=== PATIENT | female | born 1965 | race Caucasian/White ===

== ENCOUNTER 2025-06-24 08:17 | Inpatient (IN) ==
[2025-06-24] MEDS: NS 1,000 ML IV 1,000 ML ONE (08:46)
[2025-06-24] MEDS: ZOFRAN INJ 4 MG VIAL ONE (09:01)
[2025-06-24] MEDS: ZOFRAN INJ 4 MG VIAL IVP PRN (09:03)
[2025-06-24] MEDS: DIPRIVAN VIAL 20 ML ONE (09:15)
[2025-06-24] MEDS: NS 1,000 ML IV 250 ML IV PRN (09:35)
[2025-06-24] MEDS ORDERED: XYLOCAINE 2 % (PLAIN) PRN (09:40)
[2025-06-24] MEDS: DIPRIVAN VIAL 200 ML IVP PRN (09:41)
[2025-06-24] MEDS ORDERED: ZOFRAN INJ 4 MG VIAL IVP PRN (10:40)
[2025-06-24] MEDS: PROTONIX INJ 40 MG VIAL IVP SCH (11:13)
[2025-06-24] MEDS: NS 250 ML IV 25 ML IV PRN (11:13)
[2025-06-24] MEDS: D5 1/2 NS 1,000 ML 1,000 ML IV SCH (11:13)
[2025-06-24] MEDS: ZOSYN VIAL 3.375 GRAMS 3.375 G in NS 100 ML IV 100 ML IV SCH (11:13)
[2025-06-24 11:24] LABS: MEAN PLATELET VOLUME 7.2 fL (7.4-11.0); RED CELL DISTRIBUTION WIDTH 15.0 % (11.6-16.5)
[2025-06-24 11:33] LABS: COR CA(FOR HYPOALB) 10.0 mg/dL (8.5-10.1); CREATININE 0.83 mg/dL (0.55-1.02); eGFR NON BLACK RACES > 60 (>60)
[2025-06-24] MEDS ORDERED: STERILE WATER IRRIGATION IR ONE (11:33)
[2025-06-24 11:42] LABS: BAND NEUTROPHILS % 6 % (0-10); PLATELET MORPHOLOGY COMMENT NORMAL (NORMAL)
[2025-06-24] MEDS: OMNIPAQUE 350 mg/mL 100 mL BTL 100 ML ONE (12:43)
[2025-06-24] MEDS: READI-CAT 2 ONE (12:43)
[2025-06-24 12:56] VITALS: BMI 28.5
[2025-06-24] MEDS: FLAGYL IV PREMIX 500 MG BAG 500 MG/100 ML BAG IV SCH (14:07)
--- NOTE | 2025-06-24 15:06 | DR.PROGNOT ---
HOSPITAL PROGRESS NOTE Progress Note for Day of: Progress Note Date: 06/24/25 Chief Complaint Chief Complaint: Patient is a 60-year-old female who was admitted after attempted colonoscopy with the findings of acute proctitis and possible diverticulitis as well as lower rectal lesion,, Patient is having frequent mucus discharge from rectum for several months since [place], on and off fever and nausea with food intolerance. She was treated for diverticulitis with temporary improvement then she started to have large amount of mucus discharge, fever, feeling weak and tired. Colonoscopy more than a year ago showed extensive diverticulosis and possible diverticulitis at that time there was no anal or rectal lesion and no significant proctitis. Patient has history of hypothyroidism, breast reduction. We obtain stool from the lumen for C. difficile colitis and stool cultures. WBC with 15,000, potassium 3, hemoglobin 11.6, liver function tests are normal, albumin 2.7 Patient will be started on IV antibiotics and IV steroids till the cultures and pathology report are back. She is scheduled for abdominal pelvic CT scan with contrast.. Past Medical Family Social History Past Med/Fam/Surg Hx: No changes since H&P and Changes noted (describe) Allergies: Allergies No Known Allergies Allergy (Verified 04/09/25 09:58) Review Of Systems Changes in ROS: Recent fever on and off , severe nausea, excessive mucus discharge. No ble Vital Signs Vital Signs: Vital Signs Temperature 98.9 F Temperature 98.8 F Temperature 98.0 F Pulse Rate [Left Radial] 72 Pulse Rate [Left Radial] 71 Pulse Rate [Left Radial] 69 Pulse Rate [Left Radial] 70 Pulse Rate [Left Radial] 70 Pulse Rate 69 Pulse Rate 78 Pulse Rate 78 Respiratory Rate 20 Respiratory Rate 20 Respiratory Rate 20 Respiratory Rate 20 Respiratory Rate 20 Respiratory Rate 18 Respiratory Rate 20 Blood Pressure [Left Arm] 130/62 Blood Pressure [Left Arm] 132/60 Blood Pressure [Left Arm] 130/60 Blood Pressure [Left Arm] 129/59 Blood Pressure [Left Arm] 125/60 Blood Pressure 117/79 Blood Pressure 137/69 O2 Sat by Pulse Oximetry 100 O2 Sat by Pulse Oximetry 100 O2 Sat by Pulse Oximetry 100 O2 Sat by Pulse Oximetry 100 O2 Sat by Pulse Oximetry 100 O2 Sat by Pulse Oximetry 95 O2 Sat by Pulse Oximetry 100 Physical Exam Eyes: Normal Ear: Normal Nose: Normal Throat: Normal Respiratory: Normal Cardiovascular: Normal GI:Auscultation: Normal GI:Palpation: Normal GI: Tenderness: Diffuse and Moderate Mood Description: Calm Speech Pattern: Clear and Appropriate Laboratory and Diagnostics 06/24/25 10:58 06/24/25 10:58 Labs: 06/24/25 09:45 Stool - Final Laboratory WBC 15.0 X10^3/uL (3.6-10.0) H 06/24/25 10:58 RBC 4.57 X10^6/uL (3.5-5.4) 06/24/25 10:58 Hgb 11.6 g/dL (12.0-16.0) L 06/24/25 10:58 Hct 36.5 % (36.0-47.0) 06/24/25 10:58 MCV 79.7 fL (80.0-100.0) L 06/24/25 10:58 MCH 25.5 pg (27.0-34.0) L 06/24/25 10:58 MCHC 31.9 g/dL (33.0-35.0) L 06/24/25 10:58 RDW 15.0 % (11.6-16.5) 06/24/25 10:58 Plt Count 540 X10^3/uL (150.0-450.0) H 06/24/25 10:58 Plt Count Comment Increased (ADEQUATE) A 06/24/25 10:58 MPV 7.2 fL (7.4-11.0) L 06/24/25 10:58 Neut % (Auto) 80.9 % (42.0-75.0) H 06/24/25 10:58 Lymph % (Auto) 11.3 % (21.0-51.0) L 06/24/25 10:58 [place] % (Auto) 6.7 % (0.0-13.0) 06/24/25 10:58 Eos % (Auto) 0.3 % (0.9-2.9) L 06/24/25 10:58 Baso % (Auto) 0.8 % (0.2-1.0) 06/24/25 10:58 Neut # (Auto) 12.1 x10^3/uL (2.2-4.8) H 06/24/25 10:58 Lymph # (Auto) 1.7 X10^3/uL (1.3-2.9) 06/24/25 10:58 [place] # (Auto) 1.0 x10^3/uL (0.3-0.8) H 06/24/25 10:58 Eos # (Auto) 0.0 x10^3/uL (0.0-0.2) 06/24/25 10:58 Baso # (Auto) 0.1 X10^3/uL (0.0-0.1) 06/24/25 10:58 Absolute Nucleated RBC 0.1 /100WBC 06/24/25 10:58 Total Counted 100 06/24/25 10:58 Neutrophils % (Manual) 81 % (39-76) H 06/24/25 10:58 Band Neutrophils % 6 % (0-10) 06/24/25 10:58 Lymphocytes % (Manual) 7 % (13-43) L 06/24/25 10:58 Monocytes % (Manual) 6 % (4-9) 06/24/25 10:58 Plt Morphology Comment Normal (NORMAL) 06/24/25 10:58 RBC Morphology Abnormal (NORMAL) A 06/24/25 10:58 Hypochromasia Slight A 06/24/25 10:58 Microcytosis Slight A 06/24/25 10:58 Sodium 141 mmol/L (136-145) 06/24/25 10:58 Corrected Sodium TNP 06/24/25 10:58 Potassium 3.0 mmol/L (3.5-5.1) L 06/24/25 10:58 Chloride 103 mmol/L (98-107) 06/24/25 10:58 Carbon Dioxide 28.6 mmol/L (21-32) 06/24/25 10:58 BUN 6 mg/dL (7-18) L 06/24/25 10:58 Creatinine 0.83 mg/dL (0.55-1.02) 06/24/25 10:58 Est GFR (MDRD) Af Amer > 60 (>60) 06/24/25 10:58 Est GFR (MDRD) Non-Af > 60 (>60) 06/24/25 10:58 Glucose 83 mg/dL (65-99) 06/24/25 10:58 POC Glucose (mg/dL) 73 mg/dL (65-99) 06/24/25 08:36 Calcium 9.0 mg/dL (8.5-10.1) 06/24/25 10:58 Corrected Calcium 10.0 mg/dL (8.5-10.1) 06/24/25 10:58 Total Bilirubin 0.40 mg/dL (0.2-1.0) 06/24/25 10:58 AST 19 Units/L (15-37) 06/24/25 10:58 ALT 15 Units/L (12-78) 06/24/25 10:58 Alkaline Phosphatase 63 Units/L (46-116) 06/24/25 10:58 Total Protein 7.7 g/dL (6.4-8.2) 06/24/25 10:58 Albumin 2.7 g/dL (3.4-5.0) L 06/24/25 10:58 Globulin 5.0 g/dL (2.5-4.5) H 06/24/25 10:58 Albumin/Globulin Ratio 0.5 Ratio (1.1-2.1) L 06/24/25 10:58 Stl C. diff Tox B Gene Negative (NEGATIVE) 06/24/25 09:45 Stl C. diff [id number] Presumptive negative (NEGATIVE) 06/24/25 09:45 Assessment and Plan 1: Status post limited colonoscopy with biopsies collection of stool for C. diff. and cultures, diffuse proctocolitis rule out inflammatory bowel disease or diverticulitis. Constant mucus discharge, nausea and food intolerance, hypokalemia On IV antibiotics and Solu-Medrol. Awaiting culture reports and CAT scan of abdomen and pelvis with contrast.
--- NOTE | 2025-06-24 17:04 | CT ---
EXAM: CT ABDOMEN AND PELVIS WITH CONTRAST HISTORY: diverticulitis, proctitis, anal lesion; COMPARISON: None. TECHNIQUE: Axial CT images were obtained through the abdomen and pelvis after the intravenous administration of contrast. Coronal reformatted images were included. Informed written consent was obtained prior to contrast administration. All CT scans at this facility use dose modulation, iterative reconstruction, and/or weight based dosing when appropriate to reduce radiation dose to as low as reasonably achievable. FINDINGS: LOWER THORAX: Bilateral breast implants noted. Heart size is normal. Lung bases are clear. ABDOMEN: LIVER: Within normal limits. GALLBLADDER: Surgically absent. SPLEEN: Within normal limits. PANCREAS: Mild pancreatic duct dilation noted within the region of the pancreatic head. No pancreatic mass or evidence of pancreatic inflammation. KIDNEYS: Left-sided nephrolithiasis noted with dominant lower pole left renal stone measuring up to 13 mm in size. Right renal cyst measures 16 mm. ADRENAL GLANDS: Within normal limits. GI TRACT: There is segmental colonic wall thickening involving the descending colon and proximal sigmoid colon, suggesting colitis. No evidence of bowel obstruction. Normal appendix in the right lower quadrant. LYMPH NODES: No abnormally enlarged nodes. VESSELS: Within normal limits. PERITONEUM / RETROPERITONEUM: No free intraperitoneal fluid or gas. Anterior abdominal wall postoperative changes are noted. PELVIS: BLADDER: Within normal limits. GENITALS: Within normal limits. BONES: Degenerative changes are noted within the lumbar spine and pelvis. IMPRESSION: Segmental colonic wall thickening involving the descending colon and proximal sigmoid colon suggests colitis. Mild pancreatic duct dilation noted without evidence of pancreatic mass or inflammation. Correlation with liver function tests and pancreatic enzyme levels recommended. Postoperative changes of cholecystectomy. THIS IS AN ELECTRONICALLY VERIFIED FINAL REPORT 06/24/2025 5:00 PM - Electronically signed by Izaiah Bearden MD
[2025-06-25 05:43] LABS: MEAN PLATELET VOLUME 7.2 fL (7.4-11.0); RED CELL DISTRIBUTION WIDTH 14.8 % (11.6-16.5)
[2025-06-25 06:04] LABS: COR CA(FOR HYPOALB) 10.0 mg/dL (8.5-10.1); COR NA(FOR HYPERGLY) 143 mmol/L (136-145); CREATININE 0.77 mg/dL (0.55-1.02); eGFR NON BLACK RACES > 60 (>60)
[2025-06-25 06:21] LABS: PLATELET MORPHOLOGY COMMENT NORMAL (NORMAL)
[2025-06-25] MEDS ORDERED: CONSULT PHARMACY - POTASSIUM & MAGNESIUM XX SCH (07:00)
[2025-06-25] MEDS: MAG-OX TAB PO SCH (08:59)
[2025-06-25] MEDS: K-DUR TAB 20 MEQ PO SCH (09:00)
--- NOTE | 2025-06-25 09:06 | DR.PROGNOT ---
HOSPITAL PROGRESS NOTE Progress Note for Day of: Progress Note Date: 06/25/25 Chief Complaint Chief Complaint: Patient is a 60-year-old female who was admitted after attempted colonoscopy with the findings of acute proctitis and possible diverticulitis as well as lower rectal lesion,, Patient is having frequent mucus discharge from rectum for several months since her [place] visit, on and off fever and nausea with food intolerance. She was treated for diverticulitis with temporary improvement then she started to have large amount of mucus discharge, fever, feeling weak and tired. Colonoscopy more than a year ago showed extensive diverticulosis and possible diverticulitis at that time there was no anal or rectal lesion and no significant proctitis. Patient has history of hypothyroidism, breast reduction. We obtain stool from the lumen for C. difficile colitis and stool cultures. WBC with 15,000, potassium 3, hemoglobin 11.6, liver function tests are normal, albumin 2.7 Patient will be started on IV antibiotics and IV steroids till the cultures and pathology report are back. She is scheduled for abdominal pelvic CT scan with contrast.. Today patient is feeling somewhat better, no nausea or vomiting, she still having mucus discharge and moderate amount, no rectal bleeding. No abdominal pain. White count is down to 10.2 with shift to the left and 91% neutrophils, hemoglobin 10.6, potassium 3.1, glucose 195, liver function tests are normal, C. difficile and Bacteria are negative, lactate is within normal limits. Abdominal and pelvic CT scan showed colitis involving the proximal sigmoid and descending colon. Patient is afebrile today and stable vital signs. Past Medical Family Social History Past Med/Fam/Surg Hx: No changes since H&P and Changes noted (describe) Allergies: Allergies No Known Allergies Allergy (Verified 04/09/25 09:58) Review Of Systems Changes in ROS: Recent fever on and off , severe nausea, excessive mucus discharge. No ble Vital Signs Vital Signs: Vital Signs Temperature 97.5 F Pulse Rate [Left Radial] 52 Respiratory Rate 19 Blood Pressure [Left Arm] 118/59 O2 Sat by Pulse Oximetry 96 Physical Exam Oriented: Normal Eyes: Normal Ear: Normal Nose: Normal Throat: Normal Respiratory: Normal Cardiovascular: Normal GI:Auscultation: Normal GI:Palpation: Normal GI: Tenderness: Diffuse and Moderate Mood Description: Calm Speech Pattern: Clear and Appropriate Laboratory and Diagnostics 06/25/25 05:09 06/25/25 05:09 Labs: 06/24/25 09:45 Stool - Final Laboratory WBC 10.2 X10^3/uL (3.6-10.0) H 06/25/25 05:09 RBC 4.06 X10^6/uL (3.5-5.4) 06/25/25 05:09 Hgb 10.6 g/dL (12.0-16.0) L 06/25/25 05:09 Hct 32.0 % (36.0-47.0) L 06/25/25 05:09 MCV 78.8 fL (80.0-100.0) L 06/25/25 05:09 MCH 26.1 pg (27.0-34.0) L 06/25/25 05:09 MCHC 33.1 g/dL (33.0-35.0) 06/25/25 05:09 RDW 14.8 % (11.6-16.5) 06/25/25 05:09 Plt Count 431 X10^3/uL (150.0-450.0) 06/25/25 05:09 Plt Count Comment Adequate (ADEQUATE) 06/25/25 05:09 MPV 7.2 fL (7.4-11.0) L 06/25/25 05:09 Neut % (Auto) 91.1 % (42.0-75.0) H 06/25/25 05:09 Lymph % (Auto) 7.4 % (21.0-51.0) L 06/25/25 05:09 [place] % (Auto) 0.8 % (0.0-13.0) 06/25/25 05:09 Eos % (Auto) 0.0 % (0.9-2.9) L 06/25/25 05:09 Baso % (Auto) 0.7 % (0.2-1.0) 06/25/25 05:09 Neut # (Auto) 9.3 x10^3/uL (2.2-4.8) H 06/25/25 05:09 Lymph # (Auto) 0.8 X10^3/uL (1.3-2.9) L 06/25/25 05:09 [place] # (Auto) 0.1 x10^3/uL (0.3-0.8) L 06/25/25 05:09 Eos # (Auto) 0.0 x10^3/uL (0.0-0.2) 06/25/25 05:09 Baso # (Auto) 0.1 X10^3/uL (0.0-0.1) 06/25/25 05:09 Absolute Nucleated RBC 0.1 /100WBC 06/25/25 05:09 Total Counted 100 06/25/25 05:09 Neutrophils % (Manual) 91 % (39-76) H 06/25/25 05:09 Band Neutrophils % 6 % (0-10) 06/24/25 10:58 Lymphocytes % (Manual) 7 % (13-43) L 06/25/25 05:09 Monocytes % (Manual) 2 % (4-9) L 06/25/25 05:09 Plt Morphology Comment Normal (NORMAL) 06/25/25 05:09 RBC Morphology Abnormal (NORMAL) A 06/25/25 05:09 Hypochromasia Slight A 06/25/25 05:09 Microcytosis Slight A 06/25/25 05:09 Sodium 141 mmol/L (136-145) 06/25/25 05:09 Corrected Sodium 143 mmol/L (136-145) 06/25/25 05:09 Potassium 3.1 mmol/L (3.5-5.1) L 06/25/25 05:09 Chloride 106 mmol/L (98-107) 06/25/25 05:09 Carbon Dioxide 29.6 mmol/L (21-32) 06/25/25 05:09 BUN 6 mg/dL (7-18) L 06/25/25 05:09 Creatinine 0.77 mg/dL (0.55-1.02) 06/25/25 05:09 Est GFR (MDRD) Af Amer > 60 (>60) 06/25/25 05:09 Est GFR (MDRD) Non-Af > 60 (>60) 06/25/25 05:09 Glucose 195 mg/dL (65-99) H 06/25/25 05:09 POC Glucose (mg/dL) 73 mg/dL (65-99) 06/24/25 08:36 Lactic Acid 0.9 mmol/L (0.4-2.0) 06/24/25 14:29 Calcium 8.5 mg/dL (8.5-10.1) 06/25/25 05:09 Corrected Calcium 10.0 mg/dL (8.5-10.1) 06/25/25 05:09 Magnesium 1.9 mg/dL (2.0-2.9) L 06/25/25 05:09 Total Bilirubin 0.20 mg/dL (0.2-1.0) 06/25/25 05:09 AST 13 Units/L (15-37) L 06/25/25 05:09 ALT 9 Units/L (12-78) L 06/25/25 05:09 Alkaline Phosphatase 51 Units/L (46-116) 06/25/25 05:09 Total Protein 6.2 g/dL (6.4-8.2) L 06/25/25 05:09 Albumin 2.1 g/dL (3.4-5.0) L 06/25/25 05:09 Globulin 4.1 g/dL (2.5-4.5) 06/25/25 05:09 Albumin/Globulin Ratio 0.5 Ratio (1.1-2.1) L 06/25/25 05:09 Stl C. diff Tox B Gene Negative (NEGATIVE) 06/24/25 09:45 Stl C. diff [id number] Presumptive negative (NEGATIVE) 06/24/25 09:45 Assessment and Plan 1: Status post limited colonoscopy with biopsies collection of stool for C. diff. and cultures, diffuse proctocolitis rule out inflammatory bowel disease or diverticulitis. Constant mucus discharge, nausea and food intolerance, hypokalemia On IV antibiotics and Solu-Medrol. On clear liquid diet.
[2025-06-25] MEDS: D5 1/2 NS + KCL 20 MEQ/L 1,000 ML IV SCH (12:15)
[2025-06-26 05:47] LABS: MEAN PLATELET VOLUME 7.1 fL (7.4-11.0); RED CELL DISTRIBUTION WIDTH 14.7 % (11.6-16.5)
[2025-06-26 06:03] LABS: COR CA(FOR HYPOALB) 9.8 mg/dL (8.5-10.1); COR NA(FOR HYPERGLY) 146 mmol/L (136-145); CREATININE 0.95 mg/dL (0.55-1.02); PLATELET MORPHOLOGY COMMENT NORMAL (NORMAL); eGFR NON BLACK RACES > 60 (>60)
[2025-06-26] MEDS ORDERED: CONSULT PHARMACY - POTASSIUM & MAGNESIUM XX SCH ×2 (07:00)
[2025-06-26 07:50] VITALS: TEMP 97.7; O2SAT 99
[2025-06-26] MEDS: K-DUR TAB 20 MEQ PO ONE (08:24)
[2025-06-26 11:57] VITALS: BP 130/69; PULSE 60; RESP 18
== END 2025-06-26 13:30 | disposition home or self-care (01) | DRG 394 ==
LOC: SURG1 08:17 → MED/SURG 10:17
PROVIDERS: ADMIT Surgery; ATTEND Surgery
DX: R19.5 Other fecal abnormalities; K52.89 Other specified noninfective gastroenteritis and colitis; B96.5 Pseudomonas (aeruginosa) (mallei) (pseudomallei) as the cause of diseases classified elsewhere; E03.8 Other specified hypothyroidism; K62.89 Other specified diseases of anus and rectum; R19.7 Diarrhea, unspecified; K57.32 Diverticulitis of large intestine without perforation or abscess without bleeding; E87.6 Hypokalemia; D72.828 Other elevated white blood cell count

== ENCOUNTER 2025-07-15 22:21 | Observation (INO) ==
--- NOTE | 2025-07-15 23:54 | DR.NAUSEAF ---
HPI Time Seen Time Seen by Provider: 07/15/25 23:53 Primary Care Physician Primary Care Physician: MIGUEL Cuevas Complaints Chief Complaint:: Patient ambulatory in er with complaints of fever, N/V and diarrhea that started today. Pt states she had a high fever earlier today and took 1g tylenol. Self Treatment fo Chief Complaint: Pt states shes been followed by Dr. Borja for diverticulosis and colitis. Pt has been taking Prednisone 10mg BID and Protonix 40mg daily. COVID-19 Coronavirus risk:travel/contact w/high risk person: No Has patient experienced Coronavirus symptoms: No Coronavirus symptoms experienced: Fever Source History Provided: Patient Mode of Arrival Mode of Arrival: Ambulatory Timing Onset of Chief Complaint: 07/15/25 PMH PMH Past Medical History: Yes Past Medical History: Hypothyroidism and Kidney Stones Past Medical History Comment: Diverticulosis, Colitis Past Surgical History: Yes Surgical History: Cholecystectomy, Tonsillectomy, Lithotripsy and Other Family History History of Family Medical Conditions: Yes Family Medical History: Diabetes Mellitus and Hypertension Social History Does patient currently use any type of tobacco product: No Have you used tobacco products in the last 12 months: No Type of Tobacco Use: None Does any household member use tobacco: No Alcohol Use: None Do you use any recreational Drugs:: No Lives With: Spouse Lives Where: Home Travel Risk Coronavirus risk:travel/contact w/high risk person: No Has patient experienced Coronavirus symptoms: No Coronavirus symptoms experienced: Fever Infectious screening Have you traveled outside the country in the last 6 months?: No Isolation: Standard PE Vital Signs Vitals: Vital Signs Temperature 98.4 F Pulse Rate 58 Pulse Rate 58 Pulse Rate 59 Pulse Rate 59 Pulse Rate 63 Pulse Rate 66 Pulse Rate 92 Respiratory Rate 18 Blood Pressure 106/57 Blood Pressure 96/51 Blood Pressure 97/55 Blood Pressure 85/46 Blood Pressure 100/56 Blood Pressure 92/53 O2 Sat by Pulse Oximetry 98 O2 Sat by Pulse Oximetry 94 O2 Sat by Pulse Oximetry 95 O2 Sat by Pulse Oximetry 96 O2 Sat by Pulse Oximetry 98 O2 Sat by Pulse Oximetry 97 O2 Sat by Pulse Oximetry 95 COURSE Treatment Treatment: Patient with colitis and fever. Discussed results of workup with patient. Patient agreeable to admission for some IV antibiotic and rehydration to help with acute kidney injury. Consultation Called: 02:50 Consultation Comments: Discussed case with Dr. Castellon and she is agreeable to admission. [facility] Labs Reviewed Laboratory Results Reviewed?: Yes 07/15/25 23:55 07/15/25 23:55 Laboratory: WBC 12.4 X10^3/uL (3.6-10.0) H 07/15/25 23:55 RBC 4.70 X10^6/uL (3.5-5.4) 07/15/25 23:55 Hgb 12.4 g/dL (12.0-16.0) 07/15/25 23:55 Hct 37.6 % (36.0-47.0) 07/15/25 23:55 MCV 79.9 fL (80.0-100.0) L 07/15/25 23:55 MCH 26.4 pg (27.0-34.0) L 07/15/25 23:55 MCHC 33.1 g/dL (33.0-35.0) 07/15/25 23:55 RDW 17.7 % (11.6-16.5) H 07/15/25 23:55 Plt Count 437 X10^3/uL (150.0-450.0) 07/15/25 23:55 MPV 7.3 fL (7.4-11.0) L 07/15/25 23:55 Neut % (Auto) 79.0 % (42.0-75.0) H 07/15/25 23:55 Lymph % (Auto) 12.0 % (21.0-51.0) L 07/15/25 23:55 [place] % (Auto) 8.2 % (0.0-13.0) 07/15/25 23:55 Eos % (Auto) 0.1 % (0.9-2.9) L 07/15/25 23:55 Baso % (Auto) 0.7 % (0.2-1.0) 07/15/25 23:55 Neut # (Auto) 9.8 x10^3/uL (2.2-4.8) H 07/15/25 23:55 Lymph # (Auto) 1.5 X10^3/uL (1.3-2.9) 07/15/25 23:55 [place] # (Auto) 1.0 x10^3/uL (0.3-0.8) H 07/15/25 23:55 Eos # (Auto) 0.0 x10^3/uL (0.0-0.2) 07/15/25 23:55 Baso # (Auto) 0.1 X10^3/uL (0.0-0.1) 07/15/25 23:55 Absolute Nucleated RBC 0.2 /100WBC 07/15/25 23:55 Sodium 133 mmol/L (136-145) L 07/15/25 23:55 Corrected Sodium 135 mmol/L (136-145) L 07/15/25 23:55 Potassium 3.9 mmol/L (3.5-5.1) 07/15/25 23:55 Chloride 98 mmol/L (98-107) 07/15/25 23:55 Carbon Dioxide 25.7 mmol/L (21-32) 07/15/25 23:55 BUN 16 mg/dL (7-18) 07/15/25 23:55 Creatinine 1.59 mg/dL (0.55-1.02) H 07/15/25 23:55 Est GFR (MDRD) Af Amer 43 (>60) L 07/15/25 23:55 Est GFR (MDRD) Non-Af 35 (>60) L 07/15/25 23:55 Glucose 164 mg/dL (65-99) H 07/15/25 23:55 Lactic Acid 0.6 mmol/L (0.4-2.0) 07/16/25 00:28 Calcium 8.5 mg/dL (8.5-10.1) 07/15/25 23:55 Corrected Calcium 9.5 mg/dL (8.5-10.1) 07/15/25 23:55 Total Bilirubin 0.80 mg/dL (0.2-1.0) 07/15/25 23:55 AST 15 Units/L (15-37) 07/15/25 23:55 ALT 15 Units/L (12-78) 07/15/25 23:55 Alkaline Phosphatase 67 Units/L (46-116) 07/15/25 23:55 Total Protein 6.8 g/dL (6.4-8.2) 07/15/25 23:55 Albumin 2.7 g/dL (3.4-5.0) L 07/15/25 23:55 Globulin 4.1 g/dL (2.5-4.5) 07/15/25 23:55 Albumin/Globulin Ratio 0.7 Ratio (1.1-2.1) L 07/15/25 23:55 Amylase 37 Units/L (25-115) 07/15/25 23:55 Lipase 22 Units/L (16-77) 07/15/25 23:55 SARS-CoV-2 (PCR) Negative (NEGATIVE) 07/15/25 23:38 Influenza Type A (PCR) Negative (NEGATIVE) 07/15/25 23:38 Influenza Type B (PCR) Negative (NEGATIVE) 07/15/25 23:38 RSV (PCR) Negative (NEGATIVE) 07/15/25 23:38 Other Results Comments: Name: CHRIS PRATHER : 1965 Sex: F Location: ER Order Number(s): [id number] Procedure(s):CT ABDOMEN/PELVIS W/O CON Ordering Physician: Alin Rocha Primary Care: Angelika Sanchez Service Date: 07/16/25 Service Time: 45 EXAM: CT ABDOMEN AND PELVIS WITHOUT CONTRAST HISTORY: Patient ambulatory in er with complaints of fever, N/V and diarrhea that started today. Pt states she had a high fever earlier today and took 1g tylenol. ; COMPARISON: 06/24/2025 TECHNIQUE: Axial images were obtained of the abdomen and pelvis without IV contrast. Sagittal and coronal reformatted images were provided. All images were reviewed in a variety of windows and levels. RADIATION REDUCTION TECHNIQUE: Automated exposure control, adjustment of the mA or kV according to patient size, or iterative reconstruction techniques were used. FINDINGS: Please note that lack of IV contrast does limit evaluation of the soft tissues and vascular detail. The visualized lower lung zones are clear. The heart size is within normal limits. There is no evidence of a pericardial effusion. The liver, spleen, pancreas, adrenal glands, are grossly unremarkable. Post cholecystectomy changes. The kidneys are normal in size. Left nephrolithiasis, nonobstructing. The stomach, small bowel, and colon are grossly unremarkable. Multiple diverticuli arising throughout the colon. There is colonic wall thickening involving the distal descending and sigmoid colon consistent with nonspecific colitis. No abscess or free air identified. There are no inflammatory changes in the right lower quadrant to suggest secondary signs of acute appendicitis. Normal appendix right lower quadrant. There is no evidence of retroperitoneal or mesenteric lymphadenopathy. Uterus is present. Small infraumbilical fat containing ventral hernia. The visualized bones demonstrate degenerative changes. There are no concerning lytic or blastic lesions identified. IMPRESSION: Colonic wall thickening involving the distal descending and sigmoid colon consistent with nonspecific colitis. Colonic diverticulosis. Left nephrolithiasis, nonobstructing. THIS IS AN ELECTRONICALLY VERIFIED FINAL REPORT 07/16/2025 1:15 AM - Electronically signed by Jeffrey Floyd MD Opioid Opioid Risk Tool Age (Asher box if 16-45): No History of Preadolescent Sexual Abuse: No Total: 0 Total Score Risk Category: Low Risk Copyright: Mello THOMPSON predicting aberrant behaviors Discharge Plan Diagnosis Discharge Problem: SALONI (acute kidney injury), Colitis Discharge Plan Patient Disposition: ADMITTED INPATIENT Condition: Stable Prescriptions: No Action ondansetron 4 mg tablet,disintegrating 4 mg PO Q6H PRN (Reason: nausea and vomiting) Qty: 60 1RF pantoprazole 40 mg tablet,delayed release (DR/EC) 40 mg PO QDAY Qty: 90 0RF levothyroxine 75 mcg tablet 75 mcg PO QDAY Ozempic 2 mg/dose (8 mg/3 mL) pen injector 2 mg subcut QWEEK Patient Comments: Pt states she hasn't taken med [id number] prednisone 10 mg tablet 10 mg PO BID Qty: 60 0RF Health Concerns: Post Hospitalization: new medications and changes needed to prevent readmission or further decline. Pt educated and given instructions on all concerns. Plan of Treatment: Continue with present treatment and follow up plan. Pt is to keep follow up appointment as instructed and take medications as ordered. Orders to Discharge Patient Discharge Orders: Transfer (Routine); Ordered 07/16/25 Ordered By: Alin Rocha Follow ups/Referrals Follow ups/Referrals: Angelika Sanchez [Primary Care Provider, Unknown] - 3 days Instructions Stand Alone Forms: Find Help Web Site, Post Hospital Follow Up Care Print Language: AUSTRALIAN
[2025-07-16 00:19] LABS: MEAN PLATELET VOLUME 7.3 fL (7.4-11.0); RED CELL DISTRIBUTION WIDTH 17.7 % (11.6-16.5)
[2025-07-16 00:26] LABS: COR CA(FOR HYPOALB) 9.5 mg/dL (8.5-10.1); COR NA(FOR HYPERGLY) 135.0 mmol/L (136-145); CREATININE 1.59 mg/dL (0.55-1.02); eGFR NON BLACK RACES 35.0 (>60)
[2025-07-16] MEDS: NS 1,000 ML IV 1,000 ML IV ONE (00:32)
--- NOTE | 2025-07-16 01:18 | CT ---
EXAM: CT ABDOMEN AND PELVIS WITHOUT CONTRAST HISTORY: Patient ambulatory in er with complaints of fever, N/V and diarrhea that started today. Pt states she had a high fever earlier today and took 1g tylenol. ; COMPARISON: 06/24/2025 TECHNIQUE: Axial images were obtained of the abdomen and pelvis without IV contrast. Sagittal and coronal reformatted images were provided. All images were reviewed in a variety of windows and levels. RADIATION REDUCTION TECHNIQUE: Automated exposure control, adjustment of the mA or kV according to patient size, or iterative reconstruction techniques were used. FINDINGS: Please note that lack of IV contrast does limit evaluation of the soft tissues and vascular detail. The visualized lower lung zones are clear. The heart size is within normal limits. There is no evidence of a pericardial effusion. The liver, spleen, pancreas, adrenal glands, are grossly unremarkable. Post cholecystectomy changes. The kidneys are normal in size. Left nephrolithiasis, nonobstructing. The stomach, small bowel, and colon are grossly unremarkable. Multiple diverticuli arising throughout the colon. There is colonic wall thickening involving the distal descending and sigmoid colon consistent with nonspecific colitis. No abscess or free air identified. There are no inflammatory changes in the right lower quadrant to suggest secondary signs of acute appendicitis. Normal appendix right lower quadrant. There is no evidence of retroperitoneal or mesenteric lymphadenopathy. Uterus is present. Small infraumbilical fat containing ventral hernia. The visualized bones demonstrate degenerative changes. There are no concerning lytic or blastic lesions identified. IMPRESSION: Colonic wall thickening involving the distal descending and sigmoid colon consistent with nonspecific colitis. Colonic diverticulosis. Left nephrolithiasis, nonobstructing. THIS IS AN ELECTRONICALLY VERIFIED FINAL REPORT 07/16/2025 1:15 AM - Electronically signed by Jeffrey Floyd MD
[2025-07-16 02:50] LABS: BLOOD/HEMOGLOBIN,URINE NEGATIVE (NEGATIVE); LEUKOCYTE ESTERASE ,URINE NEGATIVE (NEGATIVE); NITRITES,URINE NEGATIVE (NEGATIVE)
[2025-07-16] MEDS: ROCEPHIN VIAL 1 GRAM IM ONE (02:52)
[2025-07-16 02:54] LABS: APPEARANCE,URINE CLEAR (CLEAR); SQUAMOUS EPITHELIAL CELL,UR RARE /HPF (NEGATIVE)
[2025-07-16] MEDS: ROCEPHIN VIAL 1 GRAM IVP ONE (02:59)
[2025-07-16] MEDS: FLAGYL TAB 250 MG PO ONE (02:59)
[2025-07-16] MEDS ORDERED: ULTRAM PO PRN (03:53)
[2025-07-16] MEDS ORDERED: NovoLIN R (or HumuLIN R) SUBCUT PRN (03:53)
[2025-07-16] MEDS ORDERED: ZOFRAN INJ 4 MG VIAL IVP PRN (03:53)
[2025-07-16] MEDS ORDERED: CONSULT PHARMACY - POTASSIUM & MAGNESIUM XX SCH (03:53)
[2025-07-16] MEDS ORDERED: MORPHINE SULFATE INJ 2 MG INJ IVP PRN (03:53)
[2025-07-16] MEDS ORDERED: NORCO 5/325 MG TAB PO PRN (03:53)
[2025-07-16 04:23] VITALS: BMI 29.1
[2025-07-16] MEDS: NS 1,000 ML IV 1,000 ML IV SCH (04:52)
[2025-07-16 06:14] LABS: MEAN PLATELET VOLUME 7.4 fL (7.4-11.0); RED CELL DISTRIBUTION WIDTH 18.1 % (11.6-16.5)
[2025-07-16 06:27] LABS: COR CA(FOR HYPOALB) 9.3 mg/dL (8.5-10.1); COR NA(FOR HYPERGLY) 136.0 mmol/L (136-145); CREATININE 1.33 mg/dL (0.55-1.02); eGFR NON BLACK RACES 44.0 (>60)
[2025-07-16] MEDS: PROTONIX TAB 40 MG PO SCH (09:00)
[2025-07-16] MEDS: K-DUR TAB 20 MEQ PO SCH (09:00)
[2025-07-16] MEDS: FLAGYL IV PREMIX 500 MG BAG 500 MG/100 ML BAG IV SCH (09:01)
--- NOTE | 2025-07-16 10:37 | DR.H&P ---
H&P History & Physical for Day of: H&P Date: 07/16/25 Chief Complaint Chief Complaint: FEVER History of Present Illness History of Present Illness: 60 yo female with a history of hypothyroidism and diet controlled DM presented to ER for fever, nausea, vomiting, and diarrhea. Patient states that yesterday morning she ate a bowl of Honey Nut Cheerios with [place] milk and immediately brought it back up; states that the nausea and vomiting continued and she also developed diarrhea. States that within several hours she developed a fever of 104 and came into the ER to be checked out. Denies abdominal pain but does relate that she traveled to [facility] in December and has had stomach issues since returning. States that she was admitted about 3-4 weeks ago for similar symptoms and was diagnosed with colitis; was given antibiotics in the hospital and was better until yesterday. States that she has tried changing her diet but feels like her stomach has not been the same. Does relate that she was on Ozempic for about 3 years but stopped it about a month ago because her A1c was less than 6. Also relates that no one else in the household has had any vomiting or diarrhea nor has anyone else that she knows who traveled to [facility] with her. Patient noted in ER to have fever, mild elevation of WBC as well as vomiting and diarrhea; admitted for hydration and further workup Past Medical History Past Medical History: Diabetes (Diet controlled; off of Ozempic X 1 month), Hypothyroidism and Kidney Stones Past Surgical History Surgical History: Cholecystectomy and Weight Loss Surgery Family History Family Medical History: Cancer (Father had esophageal CA ? related to asbestos) Social History Does patient currently use any type of tobacco product: No Have you used tobacco products in the last 12 months: No Type of Tobacco Use: None Does any household member use tobacco: No Alcohol Use: None Drug Use: None Prescription drug monitoring program results: PDMP reviewed and no concerns identified Medications Home Medications: Home Medications Medication Instructions Recorded Confirmed Type levothyroxine 75 mcg tablet 75 mcg PO QDAY disorder of thyroid 11/29/23 07/16/25 History gland Allergies Allergies Allergy/AdvReac Type Severity Reaction Status Date / Time No Known Allergies Allergy Verified 07/09/25 14:27 Labs 07/16/25 05:22 07/16/25 05:22 Labs: Laboratory WBC 9.2 X10^3/uL (3.6-10.0) 07/16/25 05:22 RBC 4.72 X10^6/uL (3.5-5.4) 07/16/25 05:22 Hgb 12.3 g/dL (12.0-16.0) 07/16/25 05:22 Hct 37.8 % (36.0-47.0) 07/16/25 05:22 MCV 80.1 fL (80.0-100.0) 07/16/25 05:22 MCH 26.1 pg (27.0-34.0) L 07/16/25 05:22 MCHC 32.6 g/dL (33.0-35.0) L 07/16/25 05:22 RDW 18.1 % (11.6-16.5) H 07/16/25 05:22 Plt Count 351 X10^3/uL (150.0-450.0) 07/16/25 05:22 MPV 7.4 fL (7.4-11.0) 07/16/25 05:22 Neut % (Auto) 79.2 % (42.0-75.0) H 07/16/25 05:22 Lymph % (Auto) 10.5 % (21.0-51.0) L 07/16/25 05:22 [place] % (Auto) 10.0 % (0.0-13.0) 07/16/25 05:22 Eos % (Auto) 0.1 % (0.9-2.9) L 07/16/25 05:22 Baso % (Auto) 0.2 % (0.2-1.0) 07/16/25 05:22 Neut # (Auto) 7.2 x10^3/uL (2.2-4.8) H 07/16/25 05:22 Lymph # (Auto) 1.0 X10^3/uL (1.3-2.9) L 07/16/25 05:22 [place] # (Auto) 0.9 x10^3/uL (0.3-0.8) H 07/16/25 05:22 Eos # (Auto) 0.0 x10^3/uL (0.0-0.2) 07/16/25 05:22 Baso # (Auto) 0.0 X10^3/uL (0.0-0.1) 07/16/25 05:22 Absolute Nucleated RBC 0.0 /100WBC 07/16/25 05:22 Sodium 136 mmol/L (136-145) 07/16/25 05:22 Corrected Sodium 136 mmol/L (136-145) 07/16/25 05:22 Potassium 3.8 mmol/L (3.5-5.1) 07/16/25 05:22 Chloride 101 mmol/L (98-107) 07/16/25 05:22 Carbon Dioxide 30.9 mmol/L (21-32) 07/16/25 05:22 BUN 3 mg/dL (7-18) L 07/16/25 05:22 Creatinine 1.33 mg/dL (0.55-1.02) H 07/16/25 05:22 Est GFR (MDRD) Af Amer 53 (>60) L 07/16/25 05:22 Est GFR (MDRD) Non-Af 44 (>60) L 07/16/25 05:22 Glucose 113 mg/dL (65-99) H 07/16/25 05:22 Lactic Acid 0.6 mmol/L (0.4-2.0) 07/16/25 00:28 Calcium 8.2 mg/dL (8.5-10.1) L 07/16/25 05:22 Corrected Calcium 9.3 mg/dL (8.5-10.1) 07/16/25 05:22 Total Bilirubin 0.60 mg/dL (0.2-1.0) 07/16/25 05:22 AST 15 Units/L (15-37) 07/16/25 05:22 ALT 13 Units/L (12-78) 07/16/25 05:22 Alkaline Phosphatase 69 Units/L (46-116) 07/16/25 05:22 Total Protein 6.9 g/dL (6.4-8.2) 07/16/25 05:22 Albumin 2.6 g/dL (3.4-5.0) L 07/16/25 05:22 Globulin 4.3 g/dL (2.5-4.5) 07/16/25 05:22 Albumin/Globulin Ratio 0.6 Ratio (1.1-2.1) L 07/16/25 05:22 Amylase 37 Units/L (25-115) 07/15/25 23:55 Lipase 22 Units/L (16-77) 07/15/25 23:55 Specimen Type Clean catch urine 07/16/25 02:33 Urine Color Pale yellow (YELLOW) 07/16/25 02:33 Urine Appearance Clear (CLEAR) 07/16/25 02:33 Urine pH 6.0 (5.0 - 8.0) 07/16/25 02:33 Ur Specific [place] 1.010 (1.000-1.030) 07/16/25 02:33 Urine Protein 1+ (NEGATIVE) 07/16/25 02:33 Urine Glucose (UA) Negative (NEGATIVE) 07/16/25 02:33 Urine Ketones Negative (NEGATIVE) 07/16/25 02:33 Urine Blood Negative (NEGATIVE) 07/16/25 02:33 Urine Nitrite Negative (NEGATIVE) 07/16/25 02:33 Urine Bilirubin Negative (NEGATIVE) 07/16/25 02:33 Urine Urobilinogen Normal (NORMAL) 07/16/25 02:33 Ur Leukocyte Esterase Negative (NEGATIVE) 07/16/25 02:33 Urine RBC None seen /HPF (0-3) 07/16/25 02:33 Urine WBC 0-2 /HPF (0-5) 07/16/25 02:33 Ur Squamous Epith Cells Rare /HPF (NEGATIVE) 07/16/25 02:33 Urine Bacteria Negative /HPF (NEGATIVE) 07/16/25 02:33 Ur Culture Indicated? No/not indicated 07/16/25 02:33 SARS-CoV-2 (PCR) Negative (NEGATIVE) 07/15/25 23:38 Influenza Type A (PCR) Negative (NEGATIVE) 07/15/25 23:38 Influenza Type B (PCR) Negative (NEGATIVE) 07/15/25 23:38 RSV (PCR) Negative (NEGATIVE) 07/15/25 23:38 Review of Systems Constitutional: Fever (Temp to 104 at home); denies Chills Respiratory: No Symptoms Reported Cardiovascular: No Symptoms Reported Gastrointestinal: Nausea, Vomiting and Diarrhea; denies Abdominal Pain or Hematochezia Physical Exam Vital Signs: Vital Signs Temperature 98.6 F Temperature 97.6 F Pulse Rate [Left] 74 Pulse Rate [Left] 62 Pulse Rate [Left] 69 Pulse Rate 64 Pulse Rate 65 Pulse Rate 60 Pulse Rate 59 Respiratory Rate 18 Respiratory Rate 18 Blood Pressure [Left Arm] 106/56 Blood Pressure [Left Arm] 114/56 Blood Pressure 86/52 Blood Pressure 108/50 O2 Sat by Pulse Oximetry 94 O2 Sat by Pulse Oximetry 100 O2 Sat by Pulse Oximetry 99 O2 Sat by Pulse Oximetry 99 O2 Sat by Pulse Oximetry 98 O2 Sat by Pulse Oximetry 96 O2 Sat by Pulse Oximetry 98 Oriented: Normal Eyes: Normal Ear: Normal (Hearing grossly normal) Respiratory: Clear Throughout Cardiovascular: Normal Auscultation: Bowel Sounds: Decreased Palpation: Normal and Other (Firm non pulsatile "mass" in suprapubic area- patient reports scar tissue from previous surgery) Tenderness: LLQ Skin: Normal Psychiatric: Normal Mood Description: Calm and Appropriate Affect: Normal Speech Pattern: Clear and Appropriate Assessment/Plan (1) Colitis: Status: Acute Plan: Patient with recent admission for colitis now with fever, nausea, vomiting, and diarrhea-likely recurrent colitis- exacerbating factor unclear. Patient started on Rocephin and Metronidazole; monitor WBCs and electrolytes. Will consult Dr. Najera to evaluate and assist in management (2) Renal insufficiency: Status: Acute Plan: Patient with mild renal insufficiency likely due to dehydration; continue IV hydration and monitor electrolytes (3) Hypothyroidism: Qualifiers: Hypothyroidism type: other Qualified Code(s): E03.8 - Other specified hypothyroidism Status: None Plan: Continue Levothyroxine Review H&P Reviewed: Yes Patient was examined?: Yes
[2025-07-16 10:51] LABS: CRYPTOSPORIDIUM PARVUM ANTIGEN NEGATIVE (NEGATIVE); GIARDIA LAMBLIA ANTIGEN NEGATIVE (NEGATIVE)
--- NOTE | 2025-07-16 15:28 | DR.ADDEND ---
ADDENDUM Addendum Addendum: Patient seen by Dr. Najera; given liquid diet which she tolerated without nausea or vomiting. Ok for discharge per Dr. Najera; patient would like to go home. Will give soft diet; if tolerated will discharge to home to continue soft/bland diet- will need to follow up with her PCP in 2-3 days with a basic metabolic panel on or before her visit
[2025-07-16] MEDS: TYLENOL 325 MG TAB PO PRN (17:20)
[2025-07-16] MEDS ORDERED: SNACK - Diabetic Appropriate PO SCH (20:00)
[2025-07-16] MEDS: LEVAQUIN PREMIX IV 250 MG 250 MG/50 ML BAG IV SCH (20:10)
[2025-07-17] MEDS ORDERED: ROCEPHIN VIAL 1 GRAM 1 G in NS 100 ML IV 100 ML IV SCH (03:00)
[2025-07-17 03:50] VITALS: BP 110/59; PULSE 59; RESP 18; O2SAT 98
[2025-07-17 05:18] LABS: MEAN PLATELET VOLUME 7.2 fL (7.4-11.0); RED CELL DISTRIBUTION WIDTH 17.9 % (11.6-16.5)
[2025-07-17 05:48] LABS: COR CA(FOR HYPOALB) 9.7 mg/dL (8.5-10.1); CREATININE 0.90 mg/dL (0.55-1.02); eGFR NON BLACK RACES > 60 (>60)
[2025-07-17] MEDS ORDERED: CONSULT PHARMACY - POTASSIUM & MAGNESIUM XX SCH (07:00)
[2025-07-17 08:30] VITALS: TEMP 98.9
[2025-07-17] MEDS: K-DUR TAB 20 MEQ PO SCH (09:10)
[2025-07-17] MEDS: MAG-OX TAB PO SCH (09:11)
--- NOTE | 2025-07-18 08:46 | PCM.DCPLAN ---
DISCHARGE SUMMARY Discharge Date Discharge Date: 07/17/25 Admission Diagnoses (1) Colitis: Status: Acute (2) Renal insufficiency: Status: Acute (3) Hypothyroidism: Status: None Discharge Medications Discharge Medications: Prescriptions: Hospital Course Vital Signs: Vital Signs Temperature 98.9 F Temperature 97.6 F Pulse Rate [Left] 59 Pulse Rate [Left] 59 Respiratory Rate 18 Respiratory Rate 18 Blood Pressure [Right Arm] 110/59 Blood Pressure [Right Arm] 110/59 O2 Sat by Pulse Oximetry 98 O2 Sat by Pulse Oximetry 98 Latest Lab Results: Laboratory Last Values WBC 6.9 X10^3/uL (3.6-10.0) 07/17/25 04:50 RBC 3.97 X10^6/uL (3.5-5.4) 07/17/25 04:50 Hgb 10.6 g/dL (12.0-16.0) L 07/17/25 04:50 Hct 31.8 % (36.0-47.0) L 07/17/25 04:50 MCV 80.1 fL (80.0-100.0) 07/17/25 04:50 MCH 26.6 pg (27.0-34.0) L 07/17/25 04:50 MCHC 33.3 g/dL (33.0-35.0) 07/17/25 04:50 RDW 17.9 % (11.6-16.5) H 07/17/25 04:50 Plt Count 250 X10^3/uL (150.0-450.0) 07/17/25 04:50 MPV 7.2 fL (7.4-11.0) L 07/17/25 04:50 Neut % (Auto) 69.0 % (42.0-75.0) 07/17/25 04:50 Lymph % (Auto) 18.4 % (21.0-51.0) L 07/17/25 04:50 [place] % (Auto) 11.0 % (0.0-13.0) 07/17/25 04:50 Eos % (Auto) 0.9 % (0.9-2.9) 07/17/25 04:50 Baso % (Auto) 0.7 % (0.2-1.0) 07/17/25 04:50 Neut # (Auto) 4.8 x10^3/uL (2.2-4.8) 07/17/25 04:50 Lymph # (Auto) 1.3 X10^3/uL (1.3-2.9) 07/17/25 04:50 [place] # (Auto) 0.8 x10^3/uL (0.3-0.8) 07/17/25 04:50 Eos # (Auto) 0.1 x10^3/uL (0.0-0.2) 07/17/25 04:50 Baso # (Auto) 0.0 X10^3/uL (0.0-0.1) 07/17/25 04:50 Absolute Nucleated RBC 0.0 /100WBC 07/17/25 04:50 Sodium 141 mmol/L (136-145) 07/17/25 04:50 Corrected Sodium TNP 07/17/25 04:50 Potassium 3.8 mmol/L (3.5-5.1) 07/17/25 04:50 Chloride 108 mmol/L (98-107) H 07/17/25 04:50 Carbon Dioxide 27.4 mmol/L (21-32) 07/17/25 04:50 BUN 12 mg/dL (7-18) 07/17/25 04:50 Creatinine 0.90 mg/dL (0.55-1.02) 07/17/25 04:50 Est GFR (MDRD) Af Amer > 60 (>60) 07/17/25 04:50 Est GFR (MDRD) Non-Af > 60 (>60) 07/17/25 04:50 Glucose 100 mg/dL (65-99) H 07/17/25 04:50 Lactic Acid 0.6 mmol/L (0.4-2.0) 07/16/25 00:28 Calcium 8.1 mg/dL (8.5-10.1) L 07/17/25 04:50 Corrected Calcium 9.7 mg/dL (8.5-10.1) 07/17/25 04:50 Magnesium 1.6 mg/dL (2.0-2.9) L 07/17/25 04:50 Total Bilirubin 0.30 mg/dL (0.2-1.0) 07/17/25 04:50 AST 14 Units/L (15-37) L 07/17/25 04:50 ALT 7 Units/L (12-78) L 07/17/25 04:50 Alkaline Phosphatase 53 Units/L (46-116) 07/17/25 04:50 Total Protein 5.5 g/dL (6.4-8.2) L 07/17/25 04:50 Albumin 2.0 g/dL (3.4-5.0) L 07/17/25 04:50 Globulin 3.5 g/dL (2.5-4.5) 07/17/25 04:50 Albumin/Globulin Ratio 0.6 Ratio (1.1-2.1) L 07/17/25 04:50 Amylase 25 Units/L (25-115) 07/17/25 04:50 Lipase 25 Units/L (16-77) 07/17/25 04:50 Specimen Type Clean catch urine 07/16/25 02:33 Urine Color Pale yellow (YELLOW) 07/16/25 02:33 Urine Appearance Clear (CLEAR) 07/16/25 02:33 Urine pH 6.0 (5.0 - 8.0) 07/16/25 02:33 Ur Specific [place] 1.010 (1.000-1.030) 07/16/25 02:33 Urine Protein 1+ (NEGATIVE) 07/16/25 02:33 Urine Glucose (UA) Negative (NEGATIVE) 07/16/25 02:33 Urine Ketones Negative (NEGATIVE) 07/16/25 02:33 Urine Blood Negative (NEGATIVE) 07/16/25 02:33 Urine Nitrite Negative (NEGATIVE) 07/16/25 02:33 Urine Bilirubin Negative (NEGATIVE) 07/16/25 02:33 Urine Urobilinogen Normal (NORMAL) 07/16/25 02:33 Ur Leukocyte Esterase Negative (NEGATIVE) 07/16/25 02:33 Urine RBC None seen /HPF (0-3) 07/16/25 02:33 Urine WBC 0-2 /HPF (0-5) 07/16/25 02:33 Ur Squamous Epith Cells Rare /HPF (NEGATIVE) 07/16/25 02:33 Urine Bacteria Negative /HPF (NEGATIVE) 07/16/25 02:33 Ur Culture Indicated? No/not indicated 07/16/25 02:33 Stool for White Cells Positive (NEGATIVE) A 07/16/25 09:00 Stl C. diff Tox B Gene Negative (NEGATIVE) 07/16/25 09:00 Stl C. diff [id number] Presumptive negative (NEGATIVE) 07/16/25 09:00 SARS-CoV-2 (PCR) Negative (NEGATIVE) 07/15/25 23:38 Cryptosporid parvum Ag Negative (NEGATIVE) 07/16/25 09:00 Giardia lamblia Ag Negative (NEGATIVE) 07/16/25 09:00 Influenza Type A (PCR) Negative (NEGATIVE) 07/15/25 23:38 Influenza Type B (PCR) Negative (NEGATIVE) 07/15/25 23:38 RSV (PCR) Negative (NEGATIVE) 07/15/25 23:38 Hospital Course: Patient subjectively improved; had liquid diet at lunch with no vomiting per nursing. Patient seen by Dr. Najera; cleared for discharge today- patient would like to go home today per nursing. Given soft diet without nausea or vomiting; will discharge to home on soft/bland diet, continued prednisone ,and Metronidazole. Follow up with PCP, Angelika Sanchez in 2-[address] Najera per his instructions PE: Well-developed, well-nourished female in no acute distress. Heart regular rate and rhythm, lungs clear with strong speech, belly soft and nontender with bowel sounds present. Skin is appropriate color, turgor, and without bruising or rash. Head NCAT with hearing grossly normal. EOMI. Neck full range of motion. Able to move all extremities with no edema. Mood and affect are appropriate.
== END 2025-07-17 11:20 | disposition home or self-care (01) ==
LOC: ER 22:21 → MED/SURG 22:21
PROVIDERS: ADMIT Family Medicine; ATTEND Family Medicine
DX: K52.89 Other specified noninfective gastroenteritis and colitis; D64.89 Other specified anemias; R19.7 Diarrhea, unspecified; N17.8 Other acute kidney failure; R94.4 Abnormal results of kidney function studies; E86.0 Dehydration; Z87.442 Personal history of urinary calculi; E83.51 Hypocalcemia; R50.9 Fever, unspecified; E87.1 Hypo-osmolality and hyponatremia; K57.30 Diverticulosis of large intestine without perforation or abscess without bleeding; E03.8 Other specified hypothyroidism; D72.828 Other elevated white blood cell count; Z03.818 Encounter for observation for suspected exposure to other biological agents ruled out; E13.65 Other specified diabetes mellitus with hyperglycemia; R79.89 Other specified abnormal findings of blood chemistry; R10.84 Generalized abdominal pain; R11.2 Nausea with vomiting, unspecified; E83.42 Hypomagnesemia; N20.0 Calculus of kidney